=== PATIENT | female | born 1975 | race Caucasian/White ===

== ENCOUNTER → 2024-05-21 | Outpatient (CLI) | payer SELFPAY ==
[2024-05-21 16:22] LABS: Absolute Lymphocyte Count 3.35 X10^3/uL (0.83-4.51); Absolute Neutrophil Count 6.9 X10^3/uL (2.0-7.7); Basophil# 0.08 X10^3/uL; Basophil% 0.7 % (0-1); Eosinophil# 0.09 X10^3/uL; Eosinophils% 0.8 % (0-5); Hematocrit 52.4 % (37-47); Hemoglobin 17.1 g/dL (12.0-15.0); Lymphocyte # 3.35 X10^3/ul (0.83-4.51); Lymphocyte % 29.6 % (19-41); Mean Corp Hgb Conc 32.6 g/dL (32-36); Mean Corpuscular Hgb 29.6 pg (27.0-32.0); Mean Corpuscular Volume 90.8 fL (81-99); Mean Platelet Vol. 10.6 fl (6.2-12.0); Monocyte# 0.85 X10^3/uL; Monocyte% 7.5 % (0-10); NRBC Flagged by Analyzer 0 % (0-5); Neutrophil # 6.91 X10^3/uL (2.7-7.7); Platelet Count 383 K/mm3 (150-450); RBC Distribution Width CV 13.7 % (11.6-14.6); RBC Distribution Width SD 46.2 fl (35.1-43.9); Red Blood Count 5.77 M/mm3 (4.2-5.4); White Blood Count 11.3 K/mm3 (4.4-11.0)
[2024-05-21 19:26] LABS: ALB/GLOB Ratio 1.2 RATIO (0.9-2.4); AST(SGOT) 20 U/L (15-37); Alanine Aminotransfer ALT/SGPT 30 U/L (13-56); Albumin, Serum 4.3 g/dL (3.2-5.0); Alkaline Phosphatase 123 U/L (45-117); Anion Gap 10 (5-15); BUN 15 mg/dL (7-18); BUN/Creat Ratio 20.4 RATIO (10-20); Calcium,Total 9.9 mg/dL (8.5-10.1); Chloride 107 mmol/L (98-107); Creatinine, Serum 0.74 mg/dL (0.55-1.02); EST Glomerular Filtration Rate 90 mL/min (>60); Est Glom Filt Rate - Afr Amer 109 mL/min (>60); Estradiol 37.7 pg/mL; Globulin 3.6 g/dL (2.2-4.2); Glucose 81 mg/dL (74-106); Potassium 4.1 mmol/L (3.5-5.1); Protein, Total 7.9 g/dL (6.4-8.2); Sodium Level 140 mmol/L (136-145)
[2024-05-23 10:07] LABS: PROGESTERONE 0.3 ng/mL (.)
[2024-05-25 08:11] LABS: G6PD Quant Test 258 (127-427); Red Blood Cell Count Test/G6PD 5.74 x10E6/uL (3.77-5.28)
== END | disposition home or self-care (01) ==
LOC: LABSPEC 16:00
PROVIDERS: Referring Provider Nurse Practitioner Family; Visit Provider Nurse Practitioner Family
DX: N30.10 Interstitial cystitis (chronic) without hematuria (principal); R53.82 Chronic fatigue, unspecified; G89.29 Other chronic pain; R51.9 Headache, unspecified; A69.20 Lyme disease, unspecified; B60.01 Babesiosis due to Babesia microti; A44.0 Systemic bartonellosis; R42 Dizziness and giddiness
CPT/HCPCS: 80053; 82627; 82670; 82955; 84144; 84403; 85025; 82626